=== PATIENT | female | born 1975 | race Caucasian/White ===

== ENCOUNTER 2017-03-01 11:43 | Inpatient (IN) | payer BC ==
[~2017-03-01] VITALS: Ht 170.2 cm; Wt 86.1 kg
[2017-03-01] MEDS ORDERED: PANTOPRAZOLE 80 MG in SODIUM CHLORIDE 0.9% 100 ML IV SCH (12:07)
[2017-03-01] MEDS ORDERED: PANTOPRAZOLE 80 MG in SODIUM CHLORIDE 0.9% 50 ML IVPB ONE (12:07)
[2017-03-01] MEDS ORDERED: morphine SULFATE 10 MG/ML, 1ML ONE ×2 (12:09→15:14)
[2017-03-01] MEDS ORDERED: ONDANSETRON 2MG/ML, 2ML ONE (12:09)
[2017-03-01] MEDS ORDERED: OMEP-110 PO (12:22)
[2017-03-01] MEDS ORDERED: CITA40TA12 PO (12:22)
[2017-03-01] MEDS ORDERED: PROP20TA PO (12:22)
[2017-03-01] MEDS ORDERED: PRED5TAB25 PO (12:22)
[2017-03-01] MEDS ORDERED: SODIUM CHLORIDE FLUSH 10ML SYR IVF ONE (12:30)
[2017-03-01] MEDS ORDERED: PLEASE ENTER HEIGHT AND WEIGHT MC SCH (12:30)
[2017-03-01] MEDS ORDERED: SODIUM CHLORIDE 0.9% 1,000ML IVBOLUS ONE (12:30)
[2017-03-01] MEDS ORDERED: PLEASE ENTER ALLERGIES MC SCH (12:30)
[2017-03-01] MEDS ORDERED: ONDANSETRON 2MG/ML, 2ML IVPush ONE (12:30)
[2017-03-01] MEDS: MORPHINE SULFATE 4 MG/ML, 1ML IVPush PRN ×2 (12:32→13:40)
[2017-03-01 12:41] LABS: BASOPHILS # (AUTO) 0.05 x10^3/uL (0-0.1); BASOPHILS % (AUTO) 0 % (0-1); EOSINOPHILS # (AUTO) 0.09 x10^3/uL (0-0.4); EOSINOPHILS % (AUTO) 1 % (1-7); LYMPHOCYTES # (AUTO) 2.97 x10^3/uL (1-3.4); LYMPHOCYTES % (AUTO) 26 % (22-44); MD NO; MEAN CORPUSCULAR HEMOGLOBIN 34.2 pg (27.0-34.8); MEAN CORPUSCULAR HGB CONC 32.9 g/dL (32.4-35.8); MEAN CORPUSCULAR VOLUME 103.9 fL (80-100); MEAN PLATELET VOLUME 8.9 fL (7.4-10.4); MONOCYTES # (AUTO) 0.78 x10^3/uL (0.2-0.8); MONOCYTES % (AUTO) 7 % (2-9); NEUTROPHILS # (AUTO) 7.49 x10^3/uL (1.8-6.8); NEUTROPHILS % (AUTO) 66 % (42-75); PLATELET COUNT 335 x10^3/uL (130-400); RED BLOOD COUNT 3.66 x10^6/uL (3.82-5.3); RED CELL DISTRIBUTION WIDTH 16.4 % (9.6-15.2)
[2017-03-01 12:48] LABS: INTERNATIONAL NORMALIZED RATIO 1.54 (0.93-1.1); PROTHROMBIN TIME 15.9 Seconds (9.6-11.5)
[2017-03-01 12:51] LABS: ALANINE AMINOTRANSFERASE 62 U/L (12-78); ALBUMIN 1.5 g/dL (3.4-5.0); ANION GAP 7 mmol/L (5-15); CALCIUM 7.2 mg/dL (8.5-10.1); CHLORIDE 106 mmol/L (98-107); CREATININE 0.54 mg/dL (0.55-1.02)
[2017-03-01 12:53] LABS: ALKALINE PHOSPHATASE 170 U/L (45-117); BILIRUBIN,TOTAL 5.3 mg/dL (0.2-1.0); TOTAL PROTEIN 7.1 g/dL (6.4-8.2)
[2017-03-01] MEDS ORDERED: MORPHINE SULFATE 4 MG/ML, 1ML ONE ×2 (13:37→13:42)
[2017-03-01] MEDS ORDERED: METOCLOPRAMIDE 5 MG/ML, 2ML ONE (13:42)
[2017-03-01] MEDS ORDERED: METOCLOPRAMIDE 5 MG/ML, 2ML IVPush ONE (14:00)
[2017-03-01] MEDS ORDERED: POTASSIUM CHLORIDE 20 MEQ TAB.ER.PRT ONE (14:23)
[2017-03-01] MEDS ORDERED: POTASSIUM CHLORIDE 20 MEQ TAB.ER.PRT PO ONE (14:30)
[2017-03-01 14:50] LABS: CULTURE INDICATED? NO; MICROSCOPIC NOT IND
[2017-03-01] MEDS ORDERED: ONDANSETRON 2MG/ML, 2ML IVPush PRN (15:00)
[2017-03-01 16:25] VITALS: BP 122/78
[2017-03-01 16:30] VITALS: BP 122/78
[2017-03-01] MEDS: morphine SULFATE 10 MG/ML, 1ML IVPush PRN ×2 (16:41→20:35)
[2017-03-01 20:30] VITALS: BP 117/78
[2017-03-01] MEDS: POTASSIUM CHLORIDE 20 MEQ in LACTATED RINGERS 1,000 ML IV SCH (20:35)
[2017-03-02 02:16] VITALS: BP 113/71
[2017-03-02] MEDS: morphine SULFATE 10 MG/ML, 1ML IVPush PRN ×5 (02:42→17:05)
[2017-03-02 06:52] LABS: BASOPHILS # (AUTO) 0.04 x10^3/uL (0-0.1); BASOPHILS % (AUTO) 1 % (0-1); EOSINOPHILS # (AUTO) 0.24 x10^3/uL (0-0.4); EOSINOPHILS % (AUTO) 3 % (1-7); LYMPHOCYTES # (AUTO) 2.63 x10^3/uL (1-3.4); LYMPHOCYTES % (AUTO) 32 % (22-44); MD NO; MEAN CORPUSCULAR HEMOGLOBIN 34.6 pg (27.0-34.8); MEAN CORPUSCULAR HGB CONC 33.3 g/dL (32.4-35.8); MEAN CORPUSCULAR VOLUME 104.1 fL (80-100); MEAN PLATELET VOLUME 8.5 fL (7.4-10.4); MONOCYTES # (AUTO) 0.54 x10^3/uL (0.2-0.8); MONOCYTES % (AUTO) 7 % (2-9); NEUTROPHILS # (AUTO) 4.84 x10^3/uL (1.8-6.8); NEUTROPHILS % (AUTO) 58 % (42-75); PLATELET COUNT 269 x10^3/uL (130-400); RED BLOOD COUNT 3.29 x10^6/uL (3.82-5.3); RED CELL DISTRIBUTION WIDTH 16.4 % (9.6-15.2)
[2017-03-02 06:59] LABS: ALBUMIN 1.3 g/dL (3.4-5.0); ANION GAP 7 mmol/L (5-15); CALCIUM 7.7 mg/dL (8.5-10.1); CHLORIDE 107 mmol/L (98-107)
[2017-03-02 07:02] LABS: CREATININE 0.49 mg/dL (0.55-1.02)
[2017-03-02 07:03] LABS: ALANINE AMINOTRANSFERASE 60 U/L (12-78); ALKALINE PHOSPHATASE 128 U/L (45-117); TOTAL PROTEIN 5.8 g/dL (6.4-8.2)
[2017-03-02 08:30] VITALS: BP 117/72
[2017-03-02] MEDS: POTASSIUM CHLORIDE 20 MEQ in LACTATED RINGERS 1,000 ML IV SCH (12:19)
[2017-03-02 12:40] VITALS: BP 110/71
[2017-03-02] MEDS ORDERED: DICY10CA53 PO (18:08)
[2017-03-02 18:20] VITALS: BP 121/82
== END 2017-03-02 18:30 | disposition home or self-care (01) | DRG 432 ==
LOC: ED 14:17 → EDIP 14:18 → ED 14:41 → 4NOR 16:17
PROVIDERS: ADMIT Family Medicine; ATTEND Family Medicine
DX: K70.30 Alcoholic cirrhosis of liver without ascites (principal); K85.00 Idiopathic acute pancreatitis without necrosis or infection; K70.10 Alcoholic hepatitis without ascites; I85.11 Secondary esophageal varices with bleeding; K92.0 Hematemesis; E44.0 Moderate protein-calorie malnutrition; D68.9 Coagulation defect, unspecified; K76.6 Portal hypertension; E87.6 Hypokalemia; Z68.29 Body mass index [BMI] 29.0-29.9, adult; Z82.49 Family history of ischemic heart disease and other diseases of the circulatory system
CPT/HCPCS: 36415; 76700; 80053; 81003; 83605; 83690; 83735; 85018; 85025; 85610; 85730; 86850; 86900; 96365; 96375; 96376; J2405; J3480; C9113; J2270; J2765; J7030; J7120